=== PATIENT | female | born 1970 | race Caucasian/White ===

== ENCOUNTER 2021-12-11 09:44 | Emergency (ER) | payer SELFPAY ==
[~2021-12-11 09:44] MED LIST: Voltaren Gel 1 % TOP
[2021-12-11 11:55] LABS: HEMOGLOBIN 12.5 gm/dl (12.3-15.3); RED BLOOD COUNT 4.08 M/UL (4.00-5.10); WHITE BLOOD COUNT 6.3 K/UL (4.5-11.0)
[2021-12-11 12:10] LABS: BUN/CREATININE RATIO 20 (0-10)
[2021-12-11] MEDS ORDERED: CYCLOBENZAPRINE10 MG PO (12:41)
== END 2021-12-11 13:45 | disposition home or self-care (01) ==
LOC: ER1 09:44
PROVIDERS: Nurse Practitioner
DX: M54.50 Low back pain, unspecified (principal); K64.9 Unspecified hemorrhoids; E11.9 Type 2 diabetes mellitus without complications; Z88.1 Allergy status to other antibiotic agents; W01.0XXA Fall on same level from slipping, tripping and stumbling without subsequent striking against object, initial encounter; Y92.89 Other specified places as the place of occurrence of the external cause; Y99.0 Civilian activity done for income or pay
CPT/HCPCS: 72131; 72192; 80053; 81001; 82272; 85025; 96374; 96375; 99284; J2270; J2405